=== PATIENT | female | born 1950 | race Caucasian/White ===

== ENCOUNTER 2023-10-06 16:30 | Emergency (ER) | payer MEDICARE, OTHER ==
[~2023-10-06] VITALS: Ht 154.9 cm; Wt 118.3 kg
[2023-10-06 16:39] VITALS: TEMP 98.5
[2023-10-06 18:25] LABS: BASOPHILS % (AUTO) 0.6 % (0-1); EOSINOPHILS # (AUTO) 0.2 X10'3 (0-0.9); EOSINOPHILS % (AUTO) 2.8 % (0-6); HEMATOCRIT 41.7 % (35.0-45.0); HEMOGLOBIN 14.8 g/dl (12.0-16.0); MEAN CORPUSCULAR HEMOGLOBIN 34.2 PG (27.0-31.0); MEAN CORPUSCULAR HGB CONC 35.5 g/dL (33.0-36.5); MEAN CORPUSCULAR VOLUME 96.1 FL (78-98); MEAN PLATELET VOLUME 9.4 FL (7.4-10.4); MONOCYTES # (AUTO) 0.3 X10'3 (0-0.9); MONOCYTES % (AUTO) 4.6 % (2-12); NEUTROPHILS # (AUTO) 5.3 X10'3 (1.8-7.7); PLATELET COUNT 150 X10'3 (140-440); RED BLOOD COUNT 4.34 X10'6 (4.20-5.60); WHITE BLOOD COUNT 6.8 X10'3 (4.5-11.0)
[2023-10-06 18:40] LABS: ALANINE AMINOTRANSFERASE 11 U/L (12-78); ALBUMIN 3.5 G/DL (3.4-5.0); ALBUMIN/GLOBULIN RATIO 0.9 (1.1-1.5); ALKALINE PHOSPHATASE 100 IU/L (46-116); ANION GAP 10 (8-16); ASPARTATE AMINO TRANSFERASE 14 U/L (10-37); BILIRUBIN,TOTAL 0.9 MG/DL (0.1-1.0); BLOOD UREA NITROGEN 8 MG/DL (7-18); BUN/CREATININE RATIO 11.4 (10.0-20.0); CALCIUM 9.5 MG/DL (8.5-10.1); CHLORIDE 100 MMOL/L (99-107); GLUCOSE 112 MG/DL (70-104); POTASSIUM 3.5 MMOL/L (3.5-5.1); SODIUM 135 MMOL/L (135-145); TOTAL CARBON DIOXIDE 25.2 MMOL/L (24-32); TOTAL PROTEIN 7.3 G/DL (6.4-8.2); eCRCL 56 ML/MIN; eGFR 82 ML/MIN
[2023-10-06 19:12] LABS: PRO BRAIN NATRIURETIC PEPTIDE 643 PG/ML (0-125)
[2023-10-06 22:38] LABS: APTT 30 SECONDS (22-32); PROTHROMBIN TIME 10.7 SECONDS (9.0-12.0)
[2023-10-06] MEDS ORDERED: iohexol 350MG/ML 100ml bottle IV ONE (22:41)
[2023-10-06 23:30] VITALS: RESP 19
[2023-10-07] MEDS ORDERED: levoFLOXACIN-Levaquin 750MG/D5 150 ML IV STA (00:46)
[2023-10-07] MEDS ORDERED: methylPREDNISolone sod succ 125mg/2ml vial IV ONE (00:50)
[2023-10-07] MEDS ORDERED: LEVO-65 PO (01:00)
[2023-10-07] MEDS ORDERED: PRED20TA PO (01:01)
[2023-10-07 02:15] VITALS: BP 98/51; PULSE 65; O2SAT 94
== END 2023-10-07 02:56 | disposition home or self-care (01) ==
LOC: ER 16:31
DX: J18.9 Pneumonia, unspecified organism (principal); R04.2 Hemoptysis; Z79.899 Other long term (current) drug therapy; Z79.2 Long term (current) use of antibiotics
CPT/HCPCS: 36415; 71046; 71275; 80053; 83605; 83880; 84145; 84484; 85025; 85610; 85730; 87040; 93005; 96365; 96375; 99285; J1956; J2930; J3490; Q9967